=== PATIENT | male | born 1945 | race Caucasian/White ===

== ENCOUNTER 2016-12-21 05:54 | Day surgery (SDC) | payer MEDICARE, OTHER ==
--- NOTE | ~2016-12-21 | EGD ---
EGD REPORT [facility] [address] [address] NAME: JUAN CAMPBELL : [birth year] STATUS : REG [facility] PAT#: [id number] AGE: 70 ADM/REG DATE : 12/21/16 MR#: [id number] REPORT SERV DATE: 12/21/16 DICTATED BY: JUAN HARMAN DATE: 12/21/16 REPORT STATUS : Draft TRANSCRIBED BY: [employer] DATE: 12/21/16 [facility] Patient Name: Juan Campbell Date of : 1945 Attending MD: JUAN HARMAN MD Procedure Date No Time: 12/21/2016 Procedure: Colonoscopy Indications: Abdominal pain in the left lower quadrant, Rectal bleeding, Abnormal CT of the GI tract, Change in bowel habits Referring MD: JACOBY WALDEN MD Medicines: as per anesthesia Complications: No immediate complications. Procedure: Pre-Anesthesia Assessment: - ASA Grade Assessment: III - A patient with severe systemic disease. After I obtained informed consent, the scope was passed under direct vision. Throughout the procedure, the patient's blood pressure, pulse, and oxygen saturations were monitored continuously. The [facility] [id number] was introduced through the anus and advanced to the cecum, identified by appendiceal orifice and ileocecal valve. The colonoscopy was performed without difficulty. The patient tolerated the procedure. The quality of the bowel preparation was adequate to identify polyps. Findings: The perianal and digital rectal examinations were normal. Many small and large-mouthed diverticula were found in the sigmoid colon. Internal hemorrhoids were found during endoscopy and were mild. Impression: - Diverticulosis in the sigmoid colon. - Internal hemorrhoids. Recommendation: - Repeat colonoscopy in 10 years for surveillance. Procedure Code(s): --- Professional --- 94780, Colonoscopy, flexible, proximal to splenic flexure; diagnostic, with or without collection of specimen(s) by brushing or washing, with or without colon decompression (separate procedure) Diagnosis Code(s): --- Professional --- K64.8, Other hemorrhoids K57.30, Diverticulosis of large intestine without EGD REPORT [facility] [address] [place], [place] [address]. [address] NAME: JUAN CAMPBELL SARI : [birth year] STATUS : REG [facility]#: [id number] AGE: 70 ADM/REG DATE : 12/21/16 MR#: [id number] REPORT SERV DATE: 12/21/16 DICTATED BY: JUAN HARMAN DATE: 12/21/16 REPORT STATUS : Draft TRANSCRIBED BY: [employer] DATE: 12/21/16 perforation or abscess without bleeding R10.32, Left lower quadrant pain K62.5, Hemorrhage of anus and rectum R93.3, Abnormal findings on diagnostic imaging of other parts of digestive tract R19.4, Change in bowel habit CPT copyright 2013 [employer]. All rights reserved. The codes documented in this report are preliminary and upon field contractor review may be revised to meet current compliance requirements. JUAN HARMAN MD 12/21/2016 7:42 AM This report has been signed electronically. Number of Addenda: 0 Note Initiated On: 12/21/2016 7:15 AM Scope Withdrawal Time 0 hours 7 minutes 24 seconds [address] [facility] [place] [address]
[~2016-12-21 05:54] MED LIST: ASAB PO; CENTRUM PO; COQ-10200 MG PO; CYANO1000T PO; KRILL OIL PO; LIPITOR10 PO; MULTIPLE VIT PO; PROBIOTIC
== END 2016-12-21 23:59 | disposition home or self-care (01) ==
LOC: DMU 05:54
PROVIDERS: Internal Medicine Gastroenterology
PROC: 0DJD8ZZ Inspection of Lower Intestinal Tract, Via Natural or Artificial Opening Endoscopic (ICD-10-PCS; principal; 2016-12-21 07:30)
DX: K57.30 Diverticulosis of large intestine without perforation or abscess without bleeding (principal); K64.8 Other hemorrhoids; R10.32 Left lower quadrant pain; K62.5 Hemorrhage of anus and rectum; R93.3 Abnormal findings on diagnostic imaging of other parts of digestive tract; R19.4 Change in bowel habit; H71.90 Unspecified cholesteatoma, unspecified ear; J30.2 Other seasonal allergic rhinitis; Z95.5 Presence of coronary angioplasty implant and graft; Z98.52 Vasectomy status; Z90.49 Acquired absence of other specified parts of digestive tract; Z97.4 Presence of external hearing-aid; Z88.2 Allergy status to sulfonamides; Z79.899 Other long term (current) drug therapy; Z79.82 Long term (current) use of aspirin